=== PATIENT | male | born 1995 | race Caucasian/White ===

== ENCOUNTER 2016-12-14 12:24 | Emergency (ER) | payer BC ==
[2016-12-14 12:28] VITALS: BP 125/66; PULSE 84; TEMP 98.5; BMI 26.6
--- NOTE | 2016-12-14 14:10 | PDOC ---
History of Present Illness - General Chief Complaint: Sore Throat Stated Complaint: SORE THROAT, COUGH Time Seen by Provider: 12/14/16 12:55 - History of Present Illness Initial Comments: 12/14/16 14:02 CHIEF COMPLAINT: sore throat HISTORY OF PRESENT ILLNESS: 21 yo M with no significant PMH presents to ED with sore throat x 3 week. Patient reports having a fever earlier in the week, but "hasn't really felt it" the rest of the week. He did take Tylenol this morning at 7 am for pain. Patient states his younger brother was diagnosed with strep last week and treated with antibiotics. PAST MEDICAL HISTORY: Denies past medical history FAMILY HISTORY: Denies SOCIAL HISTORY :Denies tobacco, alcohol, illicit drug use. SURGICAL HISTORY: Denies ALLERGIES: No known drug allergies REVIEW OF SYSTEMS General/Constitutional: Denies fever or chills. HEENT: Throat pain x 3 days. Cardiovascular: Denies chest pain or shortness of breath. Respiratory: Denies cough, wheezing, or hemoptysis. Gastrointestinal: Denies nausea, vomiting, diarrhea or constipation. Skin and breasts: Denies rash. PHYSICAL EXAM General Appearance: Well-appearing, appropriately dressed. No apparent distress , no intoxication. HEENT: Erythema to oropharynx, exudate to R tonsil. EOMI, PERRLA. Respiratory/Chest: Lungs CTAB. Cardiovascular: RRR. S1, S2. Lymphatic: No adenopathy, tenderness. Integumentary: Appropriate color, dry, warm. No cyanosis, erythema, jaundice or rash Neurologic: scrum project manager II-XII intact. Fully oriented, alert. Appropriate mood/affect. No appreciable EOM palsy, facial droop or sensory deficit. Past History - Past Medical History Allergies/Adverse Reactions: Allergies Allergy/AdvReac Type Severity Reaction Status Date / Time No Known Allergies Allergy Verified 12/14/16 12:28 Home Medications: Ambulatory Orders Amoxicillin - [Amoxicillin 500mg Capsule -] 500 mg PO BID #14 capsule 12/14/16 Ibuprofen 600 mg PO QID PRN #24 tablet 12/14/16 Other medical history: denies - Psycho/Social/Smoking Cessation Hx Suicidal Ideation: No Smoking History: Never smoked Information on smoking cessation initiated: No Hx Alcohol Use: No Drug/Substance Use Hx: No Substance Use Type: None *Physical Exam - Vital Signs Last Vital Signs Temp Pulse Resp BP Pulse Ox 98.5 F 84 17 125/66 99 12/14/16 12:27 12/14/16 12:27 12/14/16 12:27 12/14/16 12:27 12/14/16 12:27 Medical Decision Making - Medical Decision Making 12/14/16 16:24 21 yo M with no PMH presents to ED with sore throat x 3 days after recent contact with brother who had strep. -Rapid strep Rapid strep negative, given clinical presentation and history, will treat empirically. -Amoxicillin 500 mg bid x 7 days. Advised patient to take medication as prescribed and follow up with PMD. Advised patient of signs and symptoms for return to ED; patient verbalized understanding and agrees to plan. *DC/Admit/Observation/Transfer Diagnosis at time of Disposition: Strep pharyngitis - Discharge Dispostion Disposition: HOME Condition at time of disposition: Stable Admit: No - Prescriptions Prescriptions: Amoxicillin - [Amoxicillin 500mg Capsule -] 500 mg PO BID #14 capsule Ibuprofen 600 mg PO QID PRN #24 tablet PRN Reason: Fever Or Pain - Referrals Referrals: Mehrdad Ashford MD [Primary Care Provider] - - Patient Instructions Printed Discharge Instructions: DI for Strep Throat Additional Instructions: Please take medication as prescribed and follow up with your primary care doctor next week. If you experience difficulty swallowing, speaking, breathing , or feel swelling of your throat, or have pain to your jaw or ear, please return to the ER.
== END 2016-12-14 14:39 | disposition home or self-care (01) ==
LOC: JERFT 12:24
DX: J02.0 Streptococcal pharyngitis (principal); B95.4 Other streptococcus as the cause of diseases classified elsewhere
CPT/HCPCS: 87070; 87430; 99281-25

== ENCOUNTER 2021-11-08 18:29 | Emergency (ER) | payer OTHER ==
[2021-11-08 19:17] VITALS: BP 131/87; PULSE 102; TEMP 98; BMI 29.9
[2021-11-08] MEDS ORDERED: CEPHALEXIN MONOHYDRATE 500 MG CAPSULE (UD) PO ONE (20:08)
[2021-11-08] MEDS ORDERED: SULFAMETHOXAZOLE/TRIMETHOPRIM 800MG/160MG D.S. TABLET PO ONE (20:09)
[2021-11-08] MEDS ORDERED: SULFAMETHOXAZOLE/TRIMETHOPRIM 800MG/160MG D.S. TABLET ONE (20:16)
[2021-11-08] MEDS ORDERED: CEPHALEXIN MONOHYDRATE 500 MG CAPSULE (UD) ONE (20:16)
== END 2021-11-08 20:44 | disposition home or self-care (01) ==
LOC: JER 18:29
DX: L03.113 Cellulitis of right upper limb (principal)
CPT/HCPCS: 99283-25